=== PATIENT | female | born 1945 | race Caucasian/White ===

== ENCOUNTER 2023-02-10 11:32 | Emergency (ER) | payer MEDICARE, SELFPAY ==
[2023-02-10 11:51] VITALS: BP 172/73; PULSE 85; RESP 14; TEMP 37.2; O2SAT 96; BMI 29.9
--- NOTE | 2023-02-10 12:29 | ED_ITS ---
HPI - Back Pain/Injury General Chief Complaint: Back Injury/Pain Stated Complaint: Lower back pain Time Seen by Provider: 02/10/23 12:18 History of Present Illness HPI Narrative: This 77-year-old female comes in reporting low back pain over the past day or 2. She does not describe any injury event but states that the pain is become severe where it is very difficult for her to bend over. She is able to get up and ambulate. She states that she does have a history of back pain and has been to a back specialist which included an MRI image of her low back. There were no specific findings at that time to explain her back pain from that MRI study. She does not report any pain radiating down either leg. She states that she has been taking Tylenol without much relief but does not take any other medications for these symptoms. Related Data Home Medications Medication Instructions Recorded Confirmed estradiol 0.5 mg tablet 0.5 mg PO DAILY 02/10/23 02/10/23 lisinopril 10 mg tablet 10 mg PO DAILY 02/10/23 02/10/23 pravastatin 40 mg tablet 40 mg PO DAILY 02/10/23 02/10/23 Previous Rx's Medication Instructions Recorded cyclobenzaprine 10 mg tablet 10 mg PO TID #15 tabs 02/10/23 ketorolac 10 mg tablet 10 mg PO Q8H 5 days #15 tabs 02/10/23 methylprednisolone 4 mg tablets in See Rx Instructions PO .COMPLEX 02/10/23 a dose pack (Medrol (Orestes)) #21 ea Allergies Allergy/AdvReac Type Severity Reaction Status Date / Time sulfamethoxazole Allergy Unknown Gastrointestinal Verified 02/10/23 11:49 [From Bactrim] Upset trimethoprim [From Bactrim] Allergy Unknown Gastrointestinal Verified 02/10/23 11:49 Upset Review of Systems Status of ROS: Reports: 10 or more systems reviewed and unremarkable except as noted in History and below Narrative: Constitutional: No fevers, no weight gain or loss. Eyes: No discharge. No vision changes. HENT: No congestion, no sore throat, no ear pain. Cardiovascular: No chest pain, no palpitations. Respiratory: No shortness of breath, no wheezes, no cough. Gastrointestinal: No abdominal pain, no vomiting, no diarrhea. Genitourinary: No dysuria, no hematuria. Musculoskeletal: Low back pain as described above with associated decreased range of motion. Skin: No rashes, no pruritis. Neurological: No dizziness, weakness, sensory change, speech change. Endo/Heme/Allergies: No bruising or bleeding. No polydipsia. Pysch: no suicidality, no anxiety, no insomnia. All other systems reviewed and are negative. [facility] Social History Smoking Status: Current every day smoker What tobacco products do you use: cigarettes Do you use any of these nicotine containing products: None Second hand tobacco smoke exposure: No How often do you have a drink containing alcohol: never AUDIT-C Alcohol total score: 0 Non-prescribed substance use: denies use Exam Narrative: Exam Narrative: Constitutional: Well-developed, well-nourished, no acute distress. HEENT: Normocephalic, atraumatic. Neck: Normal range of motion. Nontender. Supple. Heart: Regular. No murmurs. Normal rate. Intact distal pulses. Lungs: Clear to auscultation. No chest discomfort. No wheezes, rhonchi, or rales. Abdomen: Normal bowel sounds. Nontender. No rebound tenderness. Genitalia: Deferred. Back: No midline tenderness. Straight leg raise is negative bilaterally. Diffuse pain across the lower back. Extremities: Normal range of motion. No injury. Skin: Intact. No rash. Warm. No erythema or pallor. Neurologic: No altered sensation. No weakness. Alert and oriented. Psychiatric: No suicidality. No anxiety or depression. No insomnia. Nursing notes and vitals signs are reviewed. Const: Vital Signs, click to edit/add: Vital Signs - 24 hr 02/10/23 11:51 Temperature 98.9 F Pulse Rate [Pulse Oximeter] 85 Respiratory Rate 14 Blood Pressure [Ri ght Upper Arm] 172/73 H Pulse Oximetry 96 Oxygen Delivery Me thod Room Air Course Vital Signs Vital signs: Initial Vital Signs Temperature 98.9 F 02/10/23 11:51 Temperature Source Temporal Artery Scan 02/10/23 11:51 Pulse Rate 85 02/10/23 11:51 Pulse Rhythm Regular 02/10/23 11:51 Respiratory Rate 14 02/10/23 11:51 Blood Pressure 172/73 H 02/10/23 11:51 Blood Pressure Mean 106 H 02/10/23 11:51 Blood Pressure Position Sitting 02/10/23 11:51 Pulse Oximetry 96 02/10/23 11:51 Oxygen Delivery Method Room Air 02/10/23 11:51 Vital Signs Temperature 98.9 F 02/10/23 11:51 Pulse Rate 85 02/10/23 11:51 Respiratory Rate 14 02/10/23 11:51 Blood Pressure 172/73 H 02/10/23 11:51 Pulse Oximetry 96 02/10/23 11:51 Oxygen Delivery Method Room Air 02/10/23 11:51 Temperature 98.9 F 02/10/23 11:51 Pulse Rate 85 02/10/23 11:51 Respiratory Rate 14 02/10/23 11:51 Blood Pressure 172/73 H 02/10/23 11:51 Pulse Oximetry 96 02/10/23 11:51 Oxygen Delivery Method Room Air 02/10/23 11:51 MDM - Back Pain/Injury MDM Narrative Medical decision making narrative: This patient comes in with low back pain that has flared up without any particular injury event or strenuous activity. Because of this imaging studies were discussed but are really not indicated at this time. The patient does have a history of low back pain and has been to a spine clinic in the past. She did receive an intramuscular injection of morphine 4 mg here. I did also provide prescriptions for Toradol, Flexeril, and Medrol Dosepak. I described signs and symptoms that would indicate a need for return and re-evaluation but recommended that she make a connection with her spine clinic for ongoing management. Discharge Plan Discharge Clinical Impression: Strain of lumbar region Patient Disposition: Home, Self-Care Condition: Stable Additional Instructions: Take medication as prescribed and indicated. Increase activity as tolerated. Follow up with orthopedic clinic or spine clinic. Return if worsening. Prescriptions: New cyclobenzaprine 10 mg tablet 10 mg PO TID Qty: 15 0RF ketorolac 10 mg tablet 10 mg PO Q8H 5 Days Qty: 15 0RF methylprednisolone [Medrol (Orestes)] 4 mg tablets,dose pack See Rx Instructions .ROUTE .COMPLEX Qty: 21 0RF Rx Instructions: orally per package directions No Action pravastatin 40 mg tablet 40 mg PO DAILY lisinopril 10 mg tablet 10 mg PO DAILY estradiol 0.5 mg tablet 0.5 mg PO DAILY Stand Alone Forms: [facility] Info Instructions
[2023-02-10] MEDS: MORPHINE 4 MG/ML INJ IM (12:42)
== END 2023-02-10 12:55 | disposition home or self-care (01) ==
LOC: ED 12:42
PROVIDERS: Emergency Provider Emergency Medicine Emergency Medical Services; PCP Family Medicine
DX: S39.012A Strain of muscle, fascia and tendon of lower back, initial encounter (principal)
CPT/HCPCS: 96372; 99283; 99284; J2270

== ENCOUNTER 2023-02-18 13:07 | Emergency (ER) | payer MEDICARE, SELFPAY ==
[2023-02-18] VITALS (18 sets, daily range): BP systolic 161–195; BP diastolic 62–94; PULSE 55–78; RESP 18; TEMP 36.2; O2SAT 91–97; BMI 29.9
[2023-02-18 14:18] LABS: Appearance Urine Clear (Clear); Bilirubin Urine Negative (Negative); Blood Urine Negative (Negative); Color Urine Yellow (Yellow); Glucose Urine Negative (Negative); Ketones Urine Negative (Negative); Leukocyte Esterase Urine Negative (Negative); Nitrite Urine Negative (Negative); Protein Urine Negative (Negative); Specific Gravity Urine 1.015 (1.000-1.030); Urobilinogen Urine 0.2 (0.2-1.0)
[2023-02-18 14:23] LABS: Basophils Percent Auto 0.3 % (0.0-3.0); Eosinophils Percent Auto 1.7 % (0.0-7.0); Hematocrit 49.4 % (33.0-51.0); Hemoglobin* 15.7 gm/dL (12.0-16.0); Immature Granulocytes Pct Auto 0.2 %; Lymphocytes Percent Auto 16.5 % (20-44); Mean Corpuscular HGB Conc 32 gm/dL (32-36); Mean Corpuscular Hemoglobin 31 pg (26-34); Mean Corpuscular Volume 98 fL (80-100); Monocytes Percent Auto 7.6 % (0.0-11.0); Neutrophils Percent Auto 73.7 % (42.0-72.0); Platelet Count* 277 K/uL (140-440); RDW Coefficient of Variation % 12.2 % (11.5-15.5); Red Blood Count 5.05 m/uL (4.00-5.20); White Blood Count* 12.31 K/uL (4.50-11.00)
[2023-02-18 14:29] LABS: Troponin, Point-of-Care* 0.01 ng/ml (0.01-0.04)
[2023-02-18 14:37] LABS: WBC Urine 0-2 (0-5)
[2023-02-18] MEDS: 0.9 % SODIUM CHLORIDE 1000 ml 1,000 ML IV (14:37)
[2023-02-18 14:45] LABS: Chloride* 101 mmol/L (96-114); Sodium* 138 mmol/L (135-149)
[2023-02-18 14:46] LABS: Potassium* 4.2 mmol/L (3.6-5.1)
[2023-02-18 14:48] LABS: Creatinine* 0.8 mg/dL (0.5-1.5); Est. Creatinine Clearance* 34.99; Estimated Glomerular Filt Rate 75 ml/min
[2023-02-18 14:49] LABS: Anion Gap 10 mEq/L (7-15); Blood Urea Nitrogen* 23 mg/dL (7-30); Calcium* 9.2 mg/dL (8.4-10.6); Carbon Dioxide* 27 mmol/L (20-32); Glucose* 120 mg/dL (60-115)
[2023-02-18 14:50] LABS: Alanine Aminotransferase* 28 U/L (4-35); Alkaline Phosphatase* 66 U/L (40-150); Aspartate Amino Transferase* 34 U/L (12-35); Bilirubin Total* 0.8 mg/dL (0.1-1.5); Total Protein* 7.2 g/dL (6.0-8.3)
[2023-02-18 14:57] LABS: PCR FLU A Negative PCR FLU A (Negative); PCR FLU B Negative PCR FLU B (Negative); PCR RSV Negative PCR RSV (Negative)
[2023-02-18 14:57] LABS: Slide Review Reflex No
[2023-02-18 14:58] LABS: SARS PCR* Negative SARS-CoV-2 (Negative)
--- NOTE | 2023-02-18 15:22 | ED_ITS ---
HPI - General Adult General Date Seen: 02/18/23 Chief complaint: Weakness Stated complaint: chest pain Time Seen by Provider: 02/18/23 13:25 Source: patient Mode of arrival: ambulatory Limitations: no limitations History of Present Illness HPI narrative: Patient is a 77-year-old woman who was here about 5 days ago with low back pain. She says she really just has not felt well for the past several days since then. Fairly nondescript, maybe a little nausea, little fatigue. This morning she says she felt more lightheaded and thought she might be about to faint although she did not. She had a few sharp fleeting chest pains which have resolved. She does not note unusual shortness of breath, she says she is always a little short of breath because of her COPD. She has not had fevers or cough, no vomiting. She has an ostomy and does feel that stools are a little looser, describes them as black although looking at the bag they are more dark brown. I do not see anything that looks like melena. Related Data Home Medications Medication Instructions Recorded Confirmed estradiol 0.5 mg tablet 0.5 mg PO DAILY 02/10/23 02/10/23 lisinopril 10 mg tablet 10 mg PO DAILY 02/10/23 02/10/23 pravastatin 40 mg tablet 40 mg PO DAILY 02/10/23 02/10/23 Previous Rx's Medication Instructions Recorded cyclobenzaprine 10 mg tablet 10 mg PO TID #15 tabs 02/10/23 ketorolac 10 mg tablet 10 mg PO Q8H 5 days #15 tabs 02/10/23 methylprednisolone 4 mg tablets in See Rx Instructions PO .COMPLEX 02/10/23 a dose pack (Medrol (Orestes)) #21 ea Allergies Allergy/AdvReac Type Severity Reaction Status Date / Time sulfamethoxazole Allergy Unknown Gastrointestinal Verified 02/10/23 11:49 [From Bactrim] Upset trimethoprim [From Bactrim] Allergy Unknown Gastrointestinal Verified 02/10/23 11:49 Upset Review of Systems Status of ROS: Reports: 10 or more systems reviewed and unremarkable except as noted in History and below PFSH PFS Social History Smoking Status: Current every day smoker What tobacco products do you use: cigarettes Do you use any of these nicotine containing products: None Second hand tobacco smoke exposure: No How often do you have a drink containing alcohol: never AUDIT-C Alcohol total score: 0 Non-prescribed substance use: denies use Exam Narrative: Exam Narrative: Vital signs as noted above. In general, an alert, well-appearing patient. Head: Normocephalic, atraumatic. Eyes: Pupils are equal reactive. Extraocular movements are full. Conjunctivae are normal. ENT: Mucous membranes are moist. Throat is normal. Neck: Supple without lymphadenopathy. Heart: Regular rate and rhythm. No murmur or rub. Lungs: Clear bilaterally. No increased work of breathing, crackles or wheezes. Abdomen: Soft and nontender. Ostomy. Brown stool, no blood visible. Extremities: Well perfused. No edema. No calf tenderness. Pulses intact. Neurologic: Patient is alert and oriented to person and place. Speech is fluent. Face is symmetric. Moves all extremities equally. Affect: Normal. Skin: Warm and dry. Well perfused. Const: Vital Signs, click to edit/add: Vital Signs - 24 hr 02/18/23 13:16 02/18/23 13:18 02/18/23 13:30 Temperature 97.1 F L Pulse Rate 60 61 Pulse Rate [Right Pulse Oximeter] 78 Respiratory Rate 18 Blood Pressure Blood Pressure [Ri ght Upper Arm] 195/94 H Pulse Oximetry 94 97 95 Oxygen Delivery Me od Room Air 02/18/23 13:32 02/18/23 14:15 02/18/23 14:30 Temperature Pulse Rate 58 L 57 L 55 L Pulse Rate [Right Pulse Oximeter] Respiratory Rate Blood Pressure 180/76 H Blood Pressure [Ri ght Upper Arm] Pulse Oximetry 94 95 92 Oxygen Delivery Mi thod 02/18/23 14:32 02/18/23 14:50 02/18/23 15:00 Temperature Pulse Rate 55 L 58 L 57 L Pulse Rate [Right Pulse Oximeter] Respiratory Rate Blood Pressure 175/67 H Blood Pressure [Ri ght Upper Arm] Pulse Oximetry 94 95 96 Oxygen Delivery Mi thod 02/18/23 15:03 02/18/23 15:19 02/18/23 15:30 Temperature Pulse Rate 57 L 62 59 L Pulse Rate [Right Pulse Oximeter] Respiratory Rate Blood Pressure 161/62 H Blood Pressure [Ri ght Upper Arm] Pulse Oximetry 96 91 94 [facility] 02/18/23 15:32 02/18/23 15:33 02/18/23 15:47 Temperature Pulse Rate 58 L 57 L 63 Pulse Rate [Right Pulse Oximeter] Respiratory Rate Blood Pressure 175/66 H Blood Pressure [Ri ght Upper Arm] Pulse Oximetry 96 95 94 Oxygen Delivery Me thod 02/18/23 16:00 02/18/23 16:02 02/18/23 16:03 Temperature Pulse Rate 57 L 56 L 56 L Pulse Rate [Right Pulse Oximeter] Respiratory Rate Blood Pressure 181/67 H Blood Pressure [Ri ght Upper Arm] Pulse Oximetry 94 95 94 Oxygen Delivery Me thod Documenting provider has reviewed patient's vital signs: yes Course Course ED Course: Will place an IV and give some normal saline here. She had an EKG which by my review showed a sinus rhythm ventricular rate of 62. ST segments are normal, T- waves unremarkable. Troponin was negative, D-dimer was normal for age at 0.6. Her other labs are really fairly unremarkable. White count is 12, of uncertain clinical significance. She is not anemic, electrolytes are all normal, BUN is 2 3, creatinine 0.8. Blood sugars 120. Lactate is 1, LFTs are entirely normal. CRP is normal at 1. At this time she had an episode of lightheadedness earlier today with some associated fatigue and a couple of sharp brief chest pains which I do not think her cardiac. With a normal D-dimer an absence of tachycardia, tachypnea, hypoxia etcetera I do not think imaging is warranted. Etiology of her weakness and lightheadedness is unclear but I have discussed with her I do not see any evidence of significant infection, anemia, cardiac abnormalities, pulmonary embolism, or other acute process suggesting need for intervention. I would recommend seeing how she feels over the next couple of days and following up with primary care if not improving. Return at any time for acute worsening or new symptoms. Vital Signs Vital signs: Initial Vital Signs Temperature 97.1 F L 02/18/23 13:16 Temperature Source Temporal Artery Scan 02/18/23 13:16 Pulse Rate 78 02/18/23 13:16 Respiratory Rate 18 02/18/23 13:16 Blood Pressure 195/94 H 02/18/23 13:16 Blood Pressure Mean 127 H 02/18/23 13:16 Blood Pressure Position Sitting 02/18/23 13:16 Pulse Oximetry 94 02/18/23 13:16 Oxygen Delivery Method Room Air 02/18/23 13:16 Vital Signs Temperature 97.1 F L 02/18/23 13:16 Pulse Rate 78 02/18/23 13:16 Respiratory Rate 18 02/18/23 13:16 Blood Pressure 195/94 H 02/18/23 13:16 Pulse Oximetry 94 02/18/23 13:16 Oxygen Delivery Method Room Air 02/18/23 13:16 Temperature 97.1 F L 02/18/23 13:16 Pulse Rate 56 L 02/18/23 16:03 Respiratory Rate 18 02/18/23 13:16 Blood Pressure 181/67 H 02/18/23 16:02 Pulse Oximetry 94 02/18/23 16:03 Oxygen Delivery Method Room Air 02/18/23 13:16 Medical Decision Making Lab Data Labs: Lab Results 02/18/23 02/18/23 02/18/23 Range/Units 13:50 13:57 14:10 WBC 12.31 H (4.50-11.00) K/uL RBC 5.05 (4.00-5.20) m/uL Hgb 15.7 (12.0-16.0) gm/dL Hct 49.4 (33.0-51.0) % MCV 98 (80-100) fL MCH 31 (26-34) pg MCHC 32 (32-36) gm/dL RDW Coeff of [place] 12.2 (11.5-15.5) % Plt Count 277 (140-440) K/uL Neut % (Auto) 73.7 H (42.0-72.0) % Lymph % (Auto) 16.5 L (20-44) % [place] % (Auto) 7.6 (0.0-11.0) % Eos % (Auto) 1.7 (0.0-7.0) % Baso % (Auto) 0.3 (0.0-3.0) % Neut # (Auto) 9.10 H (1.7-7.0) K/uL Lymph # (Auto) 2.00 (0.90-2.90) K/uL [place] # (Auto) 0.90 (0.00-0.90) K/UL Eos # (Auto) 0.20 (0.00-0.50) K/uL Baso # (Auto) 0.00 (0.00-0.30) K/uL Abs Immat Gran (auto) 0.00 (0.00-0.30) K/uL Imm/Tot Granulo (auto) 0.2 % D-Dimer Quant (PE/DVT) 0.59 H (0.00-0.50) ug/ml Sodium 138 (135-149) mmol/L Potassium 4.2 (3.6-5.1) mmol/L Chloride 101 (96-114) mmol/L Carbon Dioxide 27 (20-32) mmol/L Anion Gap 10 (7-15) mEq/L BUN 23 (7-30) mg/dL Creatinine 0.8 (0.5-1.5) mg/dL Estimated Creat Clear 34.99 Estimated GFR 75 ml/min Glucose 120 H (60-115) mg/dL Lactate 1.0 (0.5-1.9) mmol/L Calcium 9.2 (8.4-10.6) mg/dL Total Bilirubin 0.8 (0.1-1.5) mg/dL Direct Bilirubin 0.0 (0.0-0.5) mg/dL AST 34 (12-35) U/L ALT 28 (4-35) U/L Alkaline Phosphatase 66 (40-150) U/L C-Reactive Protein 1.0 (0.5-1.0) mg/dL Total Protein 7.2 (6.0-8.3) g/dL Albumin 4.0 (3.3-5.0) g/dL Urine Color Yellow (Yellow) Urine Appearance Clear (Clear) Urine pH 7.0 (5.0-8.5) Ur Specific [place] 1.015 (1.000-1.030) Urine Protein Negative (Negative) Urine Glucose (UA) Negative (Negative) Urine Ketones Negative (Negative) Urine Blood Negative (Negative) Urine Nitrite Negative (Negative) Urine Bilirubin Negative (Negative) Urine Urobilinogen 0.2 (0.2-1.0) Ur Leukocyte Esterase Negative (Negative) Urine RBC 5-10 A (0-2) Urine WBC 0-2 (0-5) Ur Squamous Epith Cells None (None-Few) Urine Bacteria None (None) Stool Occult Blood (Negative) SARS-CoV-2 (PCR) Negative SARS-CoV-2 (Negative) Influenza Type A (PCR) Negative PCR FLU A (Negative) Influenza Type B (PCR) Negative PCR FLU B (Negative) RSV (PCR) Negative PCR RSV (Negative) POC Troponin I 0.01 (0.01-0.04) ng/ml 02/18/23 Range/Units 15:46 WBC (4.50-11.00) K/uL RBC (4.00-5.20) m/uL Hgb (12.0-16.0) gm/dL Hct (33.0-51.0) % MCV (80-100) fL MCH (26-34) pg MCHC (32-36) gm/dL RDW Coeff of [place] (11.5-15.5) % Plt Count (140-440) K/uL Neut % (Auto) (42.0-72.0) % Lymph % (Auto) (20-44) % [place] % (Auto) (0.0-11.0) % Eos % (Auto) (0.0-7.0) % Baso % (Auto) (0.0-3.0) % Neut # (Auto) (1.7-7.0) K/uL Lymph # (Auto) (0.90-2.90) K/uL [place] # (Auto) (0.00-0.90) K/UL Eos # (Auto) (0.00-0.50) K/uL Baso # (Auto) (0.00-0.30) K/uL Abs Immat Gran (auto) (0.00-0.30) K/uL Imm/Tot Granulo (auto) % D-Dimer Quant (PE/DVT) (0.00-0.50) ug/ml Sodium (135-149) mmol/L Potassium (3.6-5.1) mmol/L Chloride (96-114) mmol/L Carbon Dioxide (20-32) mmol/L Anion Gap (7-15) mEq/L BUN (7-30) mg/dL Creatinine (0.5-1.5) mg/dL Estimated Creat Clear Estimated GFR ml/min Glucose (60-115) mg/dL Lactate (0.5-1.9) mmol/L Calcium (8.4-10.6) mg/dL Total Bilirubin (0.1-1.5) mg/dL Direct Bilirubin (0.0-0.5) mg/dL AST (12-35) U/L ALT (4-35) U/L Alkaline Phosphatase (40-150) U/L C-Reactive Protein (0.5-1.0) mg/dL Total Protein (6.0-8.3) g/dL Albumin (3.3-5.0) g/dL Urine Color (Yellow) Urine Appearance (Clear) Urine pH (5.0-8.5) Ur Specific [place] (1.000-1.030) Urine Protein (Negative) Urine Glucose (UA) (Negative) Urine Ketones (Negative) Urine Blood (Negative) Urine Nitrite (Negative) Urine Bilirubin (Negative) Urine Urobilinogen (0.2-1.0) Ur Leukocyte Esterase (Negative) Urine RBC (0-2) Urine WBC (0-5) Ur Squamous Epith Cells (None-Few) Urine Bacteria (None) Stool Occult Blood Negative (Negative) SARS-CoV-2 (PCR) (Negative) Influenza Type A (PCR) (Negative) Influenza Type B (PCR) (Negative) RSV (PCR) (Negative) POC Troponin I (0.01-0.04) ng/ml Discharge Plan Discharge Clinical Impression: Weakness Patient Disposition: Home, Self-Care Condition: Improved Instructions: Weakness (ED) Additional Instructions: Primary care follow-up in the next few days if you are not improving. Return at any time for acute worsening symptoms. Prescriptions: No Action pravastatin 40 mg tablet 40 mg PO DAILY lisinopril 10 mg tablet 10 mg PO DAILY estradiol 0.5 mg tablet 0.5 mg PO DAILY cyclobenzaprine 10 mg tablet 10 mg PO TID Qty: 15 0RF ketorolac 10 mg tablet 10 mg PO Q8H 5 Days Qty: 15 0RF methylprednisolone [Medrol (Orestes)] 4 mg tablets,dose pack See Rx Instructions .ROUTE .COMPLEX Qty: 21 0RF Rx Instructions: orally per package directions Follow Up/Referrals: Joshua Joyce MD [Primary Care Provider] - Stand Alone Forms: [facility] Info Instructions
[2023-02-18 16:01] LABS: D Dimer Quantitative* 0.59 ug/ml (0.00-0.50)
[2023-02-18 16:07] LABS: Fecal Occult Blood* Negative (Negative)
== END 2023-02-18 16:48 | disposition home or self-care (01) ==
PROVIDERS: Emergency Provider Emergency Medicine; PCP Family Medicine
DX: R53.1 Weakness (principal)
CPT/HCPCS: 36415; 80048; 80076; 81001; 82270; 83605; 84484; 85025; 85379; 86140; 87631; 93005; 99283; 99284; J7030

== ENCOUNTER 2023-07-19 10:37 | Emergency (ER) | payer MEDICARE, SELFPAY ==
[2023-07-19 10:43] VITALS: BP 168/63; PULSE 58; RESP 14; TEMP 36.3; O2SAT 98; BMI 30.1
[2023-07-19 10:54] LABS: Appearance Urine Clear (Clear); Bilirubin Urine Negative (Negative); Blood Urine Negative (Negative); Color Urine Yellow (Yellow); Glucose Urine Negative (Negative); Ketones Urine Negative (Negative); Leukocyte Esterase Urine Negative (Negative); Nitrite Urine Positive (Negative); Protein Urine 1+ (Negative); Urobilinogen Urine 0.2 (0.2-1.0)
--- NOTE | 2023-07-19 11:08 | ED.FEMALEGU ---
HPI - Female Genitourinary General Date Seen: 07/19/23 Chief complaint: Urogenital Problems, Female Stated complaint: possible UTI Time Seen by Provider: 07/19/23 10:58 Source: patient Mode of arrival: ambulatory Limitations: no limitations History of Present Illness HPI Narrative: Patient is a 77-year-old female with history of hypertension, high cholesterol presenting for the emergency department for dysuria and polyuria. She states last night she started developing the symptoms. Initially had some mild abdominal pain that has since resolved. She does have a colostomy bag in states has been working normally. No abdominal pain today. States today her only symptoms are the dysuria and polyuria. Has had UTIs in the past she states it feels similar. Use Azo which helped improve her symptoms. Denies fevers, chills, chest pain, shortness of breath, lightheadedness, dizziness, weakness, numbness, nausea/vomiting. No other concerns noted at this time Related Data Home Medications Medication Instructions Recorded Confirmed estradiol 0.5 mg tablet 0.5 mg PO DAILY 02/10/23 07/19/23 lisinopril 10 mg tablet 10 mg PO DAILY 02/10/23 07/19/23 pravastatin 40 mg tablet 40 mg PO DAILY 02/10/23 07/19/23 alendronate 70 mg tablet 70 mg PO .week 07/19/23 07/19/23 hydrochlorothiazide 12.5 mg tablet 12.5 mg PO DAILY 07/19/23 07/19/23 Previous Rx's Medication Instructions Recorded cephalexin 500 mg capsule 500 mg PO QID #20 caps 07/19/23 Allergies Allergy/AdvReac Type Severity Reaction Status Date / Time sulfamethoxazole Allergy Unknown Gastrointestinal Verified 02/10/23 11:49 [From Bactrim] Upset trimethoprim [From Bactrim] Allergy Unknown Gastrointestinal Verified 02/10/23 11:49 Upset Review of Systems Status of ROS: Reports: 10 or more systems reviewed and unremarkable except as noted in History and below PFS PFS Social History Smoking Status: Current every day smoker What tobacco products do you use: cigarettes Do you use any of these nicotine containing products: None Second hand tobacco smoke exposure: No How often do you have a drink containing alcohol: never AUDIT-C Alcohol total score: 0 Non-prescribed substance use: denies use Exam Narrative: Exam Narrative: Const: Well-nourished, Well-developed, in no distress Eyes: PERRL, no conjunctival injection, and symmetrical lids HENT: Atraumatic external nose and ears. Moist mucous membranes. Neck: Symmetric, trachea midline, No thyromegaly. CVS: RRR, No murmurs or gallops. Peripheral pulses 2+ and equal in all extremities RESP: Unlabored respiratory effort. Clear to auscultation bilaterally. GI: Nontender/Nondistended, No rebound or guarding. MSK:Extremities w/o deformity, Normal Active ROM Skin: Warm, Dry. No rashes or lesions. Neuro: Normal Muscle tone, No focal neurological deficits. Psych: Awake, Alert, & Oriented x3. Appropriate mood and affect. Const: Vital Signs, click to edit/add: Vital Signs - 24 hr 07/19/23 10:43 Temperature 97.4 F L Pulse Rate [Pulse Oximeter] 58 L Respiratory Rate 14 Blood Pressure [Ri ght Upper Arm] 168/63 H Pulse Oximetry 98 Oxygen Delivery Me thod Room Air Course Vital Signs Vital signs: Initial Vital Signs Temperature 97.4 F L 07/19/23 10:43 Temperature Source Temporal Artery Scan 07/19/23 10:43 Pulse Rate 58 L 07/19/23 10:43 Pulse Rhythm Regular 07/19/23 10:43 Respiratory Rate 14 07/19/23 10:43 Blood Pressure 168/63 H 07/19/23 10:43 Blood Pressure Mean 98 07/19/23 10:43 Blood Pressure Position Sitting 07/19/23 10:43 Pulse Oximetry 98 07/19/23 10:43 Oxygen Delivery Method Room Air 07/19/23 10:43 Vital Signs Temperature 97.4 F L 07/19/23 10:43 Pulse Rate 58 L 07/19/23 10:43 Respiratory Rate 14 07/19/23 10:43 Blood Pressure 168/63 H 07/19/23 10:43 Pulse Oximetry 98 07/19/23 10:43 Oxygen Delivery Method Room Air 07/19/23 10:43 Temperature 97.4 F L 07/19/23 10:43 Pulse Rate 58 L 07/19/23 10:43 Respiratory Rate 14 07/19/23 10:43 Blood Pressure 168/63 H 07/19/23 10:43 Pulse Oximetry 98 07/19/23 10:43 Oxygen Delivery Method Room Air 07/19/23 10:43 MDM - Female Genitourinary MDM Narrative Medical decision making narrative: patient is a 77-year-old female presenting for dysuria and polyuria. Appears like she has a UTI based on her symptoms. She was having abdominal pain yesterday which she describes is very mild at that has since fully resolved. Since she is not having any other symptoms and hasnormal vital signs I do not believe is necessary to do lab work or imaging as she otherwise looks healthy currently. No other complaints noted. We did do urinalysis which is positive for nitrites. Due to that I will put her on antibiotics. She states she has had Keflex in the past but needs it 500 mg 4 times a day as 250 mg 4 times a day did not help her. This will be prescribed. She will be discharged at this time. Lab Data Labs: Lab Results 07/19/23 Range/Units 10:05 Urine Color Yellow (Yellow) Urine Appearance Clear (Clear) Urine pH 6.0 (5.0-8.5) Ur Specific [place] 1.020 (1.000-1.030) Urine Protein 1+ A (Negative) Urine Glucose (UA) Negative (Negative) Urine Ketones Negative (Negative) Urine Blood Negative (Negative) Urine Nitrite Positive A (Negative) Urine Bilirubin Negative (Negative) Urine Urobilinogen 0.2 (0.2-1.0) Ur Leukocyte Esterase Negative (Negative) Discharge Plan Discharge Clinical Impression: Urinary tract infection Qualifiers: Urinary tract infection type: acute cystitis Hematuria presence: without hematuria Qualified Code(s): N30.00 - Acute cystitis without hematuria Patient Disposition: Home, Self-Care Condition: Stable Instructions: Urinary Tract Infection in Older Adults (ED) Prescriptions: New cephalexin 500 mg capsule 500 mg PO QID Qty: 20 0RF No Action pravastatin 40 mg tablet 40 mg PO DAILY lisinopril 10 mg tablet 10 mg PO DAILY estradiol 0.5 mg tablet 0.5 mg PO DAILY alendronate 70 mg tablet 70 mg PO .week hydrochlorothiazide 12.5 mg tablet 12.5 mg PO DAILY Follow Up/Referrals: Joshua Joyce MD [Primary Care Provider] - Stand Alone Forms: [employer] Info Instructions
[2023-07-19 11:21] LABS: RBC Urine 0-2 (0-2)
[2023-07-19 11:22] LABS: Bacteria Urine Few; Squamous Epithelial Cell Urine Few (None-Few)
== END 2023-07-19 11:25 | disposition home or self-care (01) ==
LOC: ED 11:16
PROVIDERS: Emergency Provider Student in an Organized Health Care Education/Training Program; PCP Family Medicine
DX: N39.0 Urinary tract infection, site not specified (principal)
CPT/HCPCS: 81001; 87086; 99282; 99283

== ENCOUNTER 2024-01-08 18:04 | Emergency (ER) | payer MEDICARE, SELFPAY ==
[2024-01-08 18:09] VITALS: BP 128/73; PULSE 62; RESP 18; TEMP 36.7; O2SAT 93; BMI 28.3
--- NOTE | 2024-01-08 19:18 | ED.GENADULT ---
HPI - General Adult General Date Seen: 01/08/24 Chief complaint: Unspecified Complaint, Adult Stated complaint: port fell off R arm Time Seen by Provider: 01/08/24 18:58 Source: patient Mode of arrival: ambulatory Limitations: no limitations History of Present Illness HPI narrative: Patient is a 78-year-old woman who is undergoing chemotherapy, she had a Neulasta autoinjector placed at [facility] earlier today and it fell off. She says that she called the nurse triage line and they told her to go to ?any ER right away. She has no other complaints. The autoinjector was set to go off she says tomorrow at 6:00 p.m.. Related Data Home Medications ?Medication ?Instructions ?Recorded ?Confirmed estradiol 0.5 mg tablet 0.5 mg PO DAILY 02/10/23 07/19/23 lisinopril 10 mg tablet 10 mg PO DAILY 02/10/23 07/19/23 pravastatin 40 mg tablet 40 mg PO DAILY 02/10/23 07/19/23 alendronate 70 mg tablet 70 mg PO .week 07/19/23 07/19/23 hydrochlorothiazide 12.5 mg tablet 12.5 mg PO DAILY 07/19/23 07/19/23 Previous Rx's ?Medication ?Instructions ?Recorded cephalexin 500 mg capsule 500 mg PO QID #20 caps 07/19/23 Allergies Allergy/AdvReac Type Severity Reaction Status Date / Time sulfamethoxazole Allergy Unknown Gastrointestinal Verified 02/10/23 11:49 [From Bactrim] Upset trimethoprim [From Bactrim] Allergy Unknown Gastrointestinal Verified 02/10/23 11:49 Upset PFSH PFSH Social History Smoking Status: Current every day smoker What tobacco products do you use: cigarettes Do you use any of these nicotine containing products: None Second hand tobacco smoke exposure: No How often do you have a drink containing alcohol: never AUDIT-C Alcohol total score: 0 Non-prescribed substance use: denies use Exam Const: Vital Signs, click to edit/add: Vital Signs - 24 hr 01/08/24 18:09 Temperature 98.1 F Pulse Rate [Pulse Oximeter] 62 Respiratory Rate 18 Blood Pressure [Ri ght Upper Arm] 128/73 Pulse Oximetry 93 Oxygen Delivery Me thod Room Air Course Course ED Course: I talked with Dipika, nurse practitioner in the infusion center. She said that from a timing standpoint as long as she gets the new last and the next couple of days she will be fine. She recommended that she take the Neulasta with her to clinic tomorrow, and they will either place a new auto injector or simply give her the shot while she is there. Patient is comfortable with that. Vital Signs Vital signs: Initial Vital Signs Temperature 98.1 F 01/08/24 18:09 Temperature Source Temporal Artery Scan 01/08/24 18:09 Pulse Rate 62 01/08/24 18:09 Pulse Rhythm Regular 01/08/24 18:09 Respiratory Rate 18 01/08/24 18:09 Blood Pressure 128/73 01/08/24 18:09 Blood Pressure Mean 91 01/08/24 18:09 Blood Pressure Position Sitting 01/08/24 18:09 Pulse Oximetry 93 01/08/24 18:09 Oxygen Delivery Method Room Air 01/08/24 18:09 Vital Signs Temperature 98.1 F 01/08/24 18:09 Pulse Rate 62 01/08/24 18:09 Respiratory Rate 18 01/08/24 18:09 Blood Pressure 128/73 01/08/24 18:09 Pulse Oximetry 93 01/08/24 18:09 Oxygen Delivery Method Room Air 01/08/24 18:09 Temperature 98.1 F 01/08/24 18:09 Pulse Rate 62 01/08/24 18:09 Respiratory Rate 18 01/08/24 18:09 Blood Pressure 128/73 01/08/24 18:09 Pulse Oximetry 93 01/08/24 18:09 Oxygen Delivery Method Room Air 01/08/24 18:09 Discharge Plan Discharge Prescriptions: No Action pravastatin 40 mg tablet 40 mg PO DAILY lisinopril 10 mg tablet 10 mg PO DAILY estradiol 0.5 mg tablet 0.5 mg PO DAILY alendronate 70 mg tablet 70 mg PO .week hydrochlorothiazide 12.5 mg tablet 12.5 mg PO DAILY cephalexin 500 mg capsule 500 mg PO QID Qty: 20 0RF Follow Up/Referrals: Joshua Joyce MD [Primary Care Provider] -
== END 2024-01-08 20:07 | disposition home or self-care (01) ==
LOC: ED 19:37
PROVIDERS: Emergency Provider Emergency Medicine; PCP Family Medicine
DX: Z45.2 Encounter for adjustment and management of vascular access device (principal)
CPT/HCPCS: 99281; 99282